=== PATIENT | male | born 1995 | race Caucasian/White ===

== ENCOUNTER 2017-11-04 13:39 | Outpatient (CLI) | payer OTHER ==
--- NOTE | 2017-11-04 14:07 | RAD ---
LUMBAR SPINE FOUR VIEWS: History: Low back pain. FINDINGS: There are five lumbar type vertebrae. Pedicles are intact. Vertebral body height and alignment are ma intained. No abnormal translational motion is evident upon flexion or extension. IMPRESSION: No acute osseous abnormalities are demonstrated. POS: [facility]
--- NOTE | 2017-11-04 14:16 | RAD ---
CERVICAL SPINE 4 VIEWS: Date: 11/04/17 HISTORY: M54.2, neck pain. COMPARISON: None. FINDINGS: Open-mouth odontoid view is normal. No fracture or malalignment. No significant degenerative disc spa ce height loss. No listhesis with flexion or extension. No translation. IMPRESSION: Normal exam. POS: [facility]
--- NOTE | 2017-11-04 15:02 | MRI ---
CERVICAL SPINE MRI, NONCONTRAST: Date: 11/04/17 No prior MRI exams are available for comparison. CLINICAL HISTORY: Intrascapular pain, neck pain. FINDINGS: No acute marrow edema. No significant malalignment of cervical spine. Vertebral body heights and disc space heights are preserved. Evaluation of cervical spinal cord reveals appropriate caliber contour and signal intensity. The craniocervical junction is intact. No significant central canal or foraminal stenosis of the cervical spine. IMPRESSION: 1. There is no evidence of acute abnormality of the cervical spine. 2. No significant central canal or neural foraminal stenosis. POS: [facility]
--- NOTE | 2017-11-04 15:05 | MRI ---
MRI LUMBAR SPINE NONCONTRAST: Date: 11/04/17 HISTORY: Low back pain with left leg radiculopathy. FINDINGS: The conus medullaris has a normal appearance. Sagittal images show disc space narrowing and desiccati on of the disc at the T11-12 level with minimal posterior disc bulge. At the L4-5 level, there is mild disc bulge. 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 The central canal and other neural fora samuel remain patent. IMPRESSION: Mild degenerative changes of the lower thoracic spine. No focal disc herniation or nerve root valerie francie are apparent. POS: [facility]
== END 2017-11-04 13:40 | disposition home or self-care (01) ==
LOC: TBSIIMAG 13:39
PROVIDERS: ATTEND Surgery
DX: M54.16 Radiculopathy, lumbar region (principal); M54.2 Cervicalgia; M47.894 Other spondylosis, thoracic region
CPT/HCPCS: 72050; 72110; 72141; 72148